=== PATIENT | female | born 1950 | race Caucasian/White ===

== ENCOUNTER → 2019-01-10 | Outpatient (REF) | LOC: M LAB LCGH 10:52 | PROVIDERS: ATTEND Specialist | DX: M16.11 Unilateral primary osteoarthritis, right hip (principal) ==

== ENCOUNTER → 2021-03-18 | Outpatient (REF) | payer MEDICARE, OTHER | LOC: M LAB REF 14:18 | PROVIDERS: ATTEND Physician Assistant | DX: L12.0 Bullous pemphigoid (principal) | CPT/HCPCS: 87070; 87077; 87186; 87205; G0463 ==

== ENCOUNTER → 2021-05-01 | Outpatient (REF) | payer MEDICARE, OTHER | LOC: M LAB REF 17:31 | PROVIDERS: ATTEND Physician Assistant | DX: L12.0 Bullous pemphigoid (principal) | CPT/HCPCS: 87070; 87205; G0463 ==

== ENCOUNTER → 2022-02-12 | Outpatient (REF) | payer MEDICARE, OTHER | LOC: M SFHCDERM 17:24 | PROVIDERS: ATTEND Physician Assistant | DX: R21 Rash and other nonspecific skin eruption (principal) ==

== ENCOUNTER → 2022-09-22 | Outpatient (REF) | payer MEDICARE, OTHER | LOC: M SFHCDERM 17:10 | PROVIDERS: ATTEND Physician Assistant | DX: L12.0 Bullous pemphigoid (principal) ==

== ENCOUNTER → 2023-09-10 | Outpatient (REF) | payer MEDICARE, OTHER | LOC: M SFHCDERM 17:42 | PROVIDERS: ATTEND Physician Assistant | DX: L28.1 Prurigo nodularis (principal) ==

== ENCOUNTER → 2025-07-06 | Outpatient (CLI) | payer MEDICARE, OTHER ==
[~2025-07-06] MED LIST: AMITRIPTYLINE TOP; AMOX500C; ASCO1TAB5 PO; BACTDSTA; BIMA0.036; CENT1TAB PO; CETI10CA2 PO; ECOT81TA5 PO; EZET10TA57; GENT1OI; HYDR-3363; ISOVUE-370 76% 100 ML VIAL ONE; NAC600CA; NALT50TA4; NEMO30PE; NIAC500T29 PO; PANT40TA29; PROB250C PO; TRET0.0540; [UNRECOGNIZED DRUG - CODE]; advil PO
== END ==
LOC: M PLAIMG 11:47
PROVIDERS: ATTEND Student in an Organized Health Care Education/Training Program
DX: D72.829 Elevated white blood cell count, unspecified (principal)
CPT/HCPCS: 70491; 71260; 74177; Q9967